=== PATIENT | female | born 1955 | race Caucasian/White ===

== ENCOUNTER 2019-02-20 05:12 | Emergency (ER) | payer OTHER ==
[~2019-02-20] VITALS: Ht 157.5 cm; Wt 55.3 kg
[2019-02-20 05:12] VITALS: BP 142/79
[2019-02-20] MEDS ORDERED: IBUPROFEN 400 MG TABLET ONE (05:29)
[2019-02-20] MEDS ORDERED: IBUPROFEN 400 MG TABLET PO ONE (05:30)
== END 2019-02-20 06:29 | disposition home or self-care (01) ==
LOC: ER 05:12
DX: S63.591A Other specified sprain of right wrist, initial encounter (principal); S50.311A Abrasion of right elbow, initial encounter; M81.0 Age-related osteoporosis without current pathological fracture; W05.2XXA Fall from non-moving motorized mobility scooter, initial encounter; Y93.I9 Activity, other involving external motion; Y92.89 Other specified places as the place of occurrence of the external cause; Y99.8 Other external cause status
CPT/HCPCS: 73110